=== PATIENT | female | born 1965 | race Caucasian/White ===

== ENCOUNTER → 2023-12-29 | Outpatient (CLI) | payer OTHER ==
[2023-12-29 09:22] LABS: Anion Gap 6 (5-15); Carbon Dioxide 27 mmol/L (20-30); Chloride 108 mmol/L (98-107); Potassium 3.7 mmol/L (3.5-5.1); Sodium 141 mmol/L (136-145)
[2023-12-29 09:24] LABS: Calcium 9.9 mg/dL (8.7-10.4)
[2023-12-29 09:28] LABS: Glucose 116 mg/dL (74-106); Triglycerides 112 mg/dL (< 150)
[2023-12-29 09:29] LABS: Blood Urea Nitrogen 12 mg/dL (9-23); LDL Cholesterol 108 mg/dL (< 100)
[2023-12-29 09:30] LABS: Cholesterol 169 mg/dL (< 200); HDL Cholesterol 42 mg/dL (40-59)
== END | disposition home or self-care (01) ==
LOC: LAB 08:22
PROVIDERS: ATTEND Internal Medicine
DX: I10 Essential (primary) hypertension (principal); E78.5 Hyperlipidemia, unspecified
CPT/HCPCS: 36415; 80048; 80061

== ENCOUNTER 2024-12-30 08:57 | Outpatient (CLI) | payer OTHER ==
[2024-12-30 10:33] LABS: Alanine Aminotransferase 16 U/L (7-40); Alkaline Phosphatase 81 U/L (46-116); Anion Gap 5 (5-15); Calcium 9.4 mg/dL (8.7-10.4); Carbon Dioxide 26 mmol/L (20-31)
[2024-12-30 10:34] LABS: BUN/Creatinine Ratio 9.7 (10.0-20.0); Triglycerides 99 mg/dL (< 150)
[2024-12-30 10:35] LABS: Total Protein 6.7 g/dL (5.7-8.2)
[2024-12-30 10:36] LABS: Albumin 4.5 g/dL (3.2-4.8); Bilirubin, Total 0.5 mg/dL (0.2-1.0); Cholesterol 150 mg/dL (< 200); HDL Cholesterol 45 mg/dL (40-59)
[2024-12-30 10:44] LABS: Blood Urea Nitrogen 9 mg/dL (9-23); Chloride 112 mmol/L (98-107); Glucose 108 mg/dL (74-106); Potassium 3.9 mmol/L (3.5-5.1); Sodium 143 mmol/L (136-145)
== END 2024-12-30 17:00 | disposition home or self-care (01) ==
LOC: LAB 08:57
PROVIDERS: ATTEND Internal Medicine
DX: I10 Essential (primary) hypertension (principal); E78.5 Hyperlipidemia, unspecified
CPT/HCPCS: 36415; 80053; 80061

== ENCOUNTER 2025-03-13 19:36 | Emergency (ER) | payer OTHER ==
[~2025-03-13] VITALS: Ht 162.6 cm; Wt 64.3 kg
[2025-03-13 20:29] LABS: Hematocrit 46.6 % (36.0-46.0); Hemoglobin 15.9 g/dL (12.2-16.2); Mean Corpuscular Hemoglobin 29.5 pg (28.0-32.0); Mean Corpuscular Volume 86.4 fL (80.0-100.0); Nucleated Red Blood Cells % 0.1 %
[2025-03-13 20:36] LABS: Chloride 104 mmol/L (98-107); Potassium 3.5 mmol/L (3.5-5.1); Sodium 138 mmol/L (136-145)
[2025-03-13 20:37] LABS: Anion Gap 8 (5-15); Carbon Dioxide 26 mmol/L (20-31)
[2025-03-13 20:38] LABS: Calcium 9.3 mg/dL (8.7-10.4)
[2025-03-13 20:42] LABS: BUN/Creatinine Ratio 12.0 (10.0-20.0); Blood Urea Nitrogen 9 mg/dL (9-23)
[2025-03-13 20:47] LABS: Acetaminophen < 2.0 UG/ML (10.0-20.0); Glucose 120 mg/dL (74-106); Salicylate < 3.0 mg/dL (-30)
[2025-03-13] MEDS: ACTIVATED CHARCOAL 50 GM/240 ML SOL PO ONE (20:50)
--- NOTE | 2025-03-13 20:51 | ED.PDOC ---
History of Present Illness HPI Comments 59 y/o F, with a Hx of schizophrenia, is BIBA from private residence for c/c of lightheadedness s/p drug overdose. Patient reports on attempting to end her life by taking 20-30x pills of her 5mg Haloperidol prescription medication, approximately, an hour ago. She endorses on having suicidal ideations but denies any homicidal ideations, auditory or visual hallucinations, chest pain, shortness of breath, or further acute symptoms. PHYSICAL EXAM: General: Awake, alert and oriented. No acute distress. Skin: Skin in warm, dry and intact without rashes or lesions. HEENT: The head is normocephalic and atraumatic. Conjunctivae are clear without exudates or hemorrhage. Sclera is non-icteric. Neck: Normal range of motion. No JVD. Cardiac: Regular rate Respiratory: No signs of respiratory distress. No Stridor. Extremities: Upper and lower extremities are atraumatic in appearance without deformity. Neurological: The patient is awake, alert and oriented to person, place, and time with normal speech. Speech is clear. There is no facial asymmetry. Psychiatric: Anxious mood REVIEW OF SYSTEMS: General: No fever, no chills, or fatigue HEENT: No sore throat, no earache, no congestion, no neck pain. Cardiac: No chest pain. No palpitations. Lungs: No shortness of breath, no cough. GI: No nausea, no vomiting, no diarrhea, no constipation, no abdominal pain : No dysuria, frequency, or urgency. No hematuria. Musculoskeletal: No joint pain , no joint swelling, no extremity edema. Skin: No rash, no itching. 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 Was a procedure done?: No EKG EKG : Comments QTC 424 Differential Dx Considerations may include: Differential diagnosis considered includes but not limited to suicidal, depression, hopelessness, anxiety, substance intoxication, psychiatric cause, other systemic illness, other X-Ray, Labs, Meds, VS Vital Signs Date Time Temp Pulse Resp B/P (MAP) Pulse Ox O2 Delivery O2 Flow Rate FiO2 03/14/25 10:00 80 20 92 03/14/25 08:23 89 03/14/25 08:00 98.3 83 15 155/80 (105) 94 98.3 03/14/25 07:46 Room Air* 0 21 03/14/25 06:34 92 18 162/88 (112) 99 03/14/25 05:21 72 18 149/86 (107) 99 03/14/25 02:37 68 18 122/71 (88) 99 03/14/25 00:00 62 16 120/73 (89) 93 03/13/25 22:38 74 14 110/70 (83) 96 03/13/25 21:27 80 14 98 Room Air* 0 21 03/13/25 20:30 98.7 80 16 131/87 (102) 96 98.7 03/13/25 20:12 90 03/13/25 19:46 98.2 88 16 166/86 96 98.2 Lab Test 03/14/25 02:29 03/13/25 19:57 Range/Units Urine Color Light-yellow Yellow Urine Clarity Clear Clear Urine pH 5.5 5.0-9.0 Urine Specific Register 1.011 1.001-1.035 Urine Protein Negative Negative Urine Ketones Negative Negative Urine Blood Negative Negative /uL Urine Nitrite Negative Negative Urine Bilirubin Negative Negative Urine Urobilinogen Normal Negative mg/dL Urine Leukocyte Esterase Negative Negative /uL Urine RBC 1 0 - 4 /hpf Urine Microscopic WBC 1 0-5 /HPF Urine Squamous Epithelial Cells None seen <5 /hpf Urine Bacteria None seen None Seen /hpf Urine Hyaline Casts Few 0 - 2 /lpf Urine Mucus Few None Seen Urine Glucose Normal Normal mg/dL Urine Opiates Screen Neg NEGATIVE Urine Fentanyl Screen Pos NEGATIVE Urine Barbiturates Screen Neg NEGATIVE Urine Phencyclidine Screen Neg NEGATIVE Urine Amphetamines Screen Neg NEGATIVE Urine Benzodiazepines Screen Neg NEGATIVE Urine Cocaine Screen Neg NEGATIVE Urine Cannabinoids Screen Neg NEGATIVE White Blood Count 8.5 4.4-10.8 10^3/uL Red Blood Count 5.39 H 4.0-5.20 10^6/uL Hemoglobin 15.9 12.2-16.2 g/dL Hematocrit 46.6 H 36.0-46.0 % Mean Corpuscular Volume 86.4 80.0-100.0 fL Mean Corpuscular Hemoglobin 29.5 28.0-32.0 pg Mean Corpuscular Hemoglobin Concent 34.2 32.0-36.0 g/dL Red Cell Distribution Width 13.0 11.8-14.3 % Platelet Count 267 140-450 10^3/uL Mean Platelet Volume 8.5 6.9-10.8 fL Neutrophils (%) (Auto) 49.0 37.0-80.0 % Lymphocytes (%) (Auto) 39.9 10.0-50.0 % Monocytes (%) (Auto) 5.2 0.0-12.0 % Eosinophils (%) (Auto) 5.0 0.0-7.0 % Basophils (%) (Auto) 0.9 0.0-2.0 % Neutrophils # (Auto) 4.2 1.6-8.6 10 ^3/uL Lymphocytes # (Auto) 3.4 0.4-5.4 10 ^3/uL Monocytes # (Auto) 0.4 0-1.3 10 ^3/uL Eosinophils # (Auto) 0.4 0-0.8 10 ^3/uL Basophils # (Auto) 0.1 0-0.2 10 ^3/uL Nucleated Red Blood Cells 0.1 % Sodium Level 138 136-145 mmol/L Potassium Level 3.5 3.5-5.1 mmol/L Chloride Level 104 98-107 mmol/L Carbon Dioxide Level 26 20-31 mmol/L Anion Gap 8 5-15 Blood Urea Nitrogen 9 9-23 mg/dL Creatinine 0.75 0.550-1.02 mg/dL Glomerular Filtration Rate Calc 91 >90 mL/min BUN/Creatinine Ratio 12.0 10.0-20.0 Serum Glucose 120 H 74-106 mg/dL Calcium Level 9.3 8.7-10.4 mg/dL Salicylates Level < 3.0 -30 mg/dL Acetaminophen Level < 2.0 L 10.0-20.0 UG/ML Plasma/Serum Blood Alcohol < 3.0 <10 mg/dL Time of 1ST Reevaluation: 05:45 Reevaluation 1ST: N/A Patient Education/Counseling: Treatment, Other (need for ED observation ) Family Education/Counseling: No Family Present Change of Shift?: Yes (Signed out to Dr. Ferrer at 0600) SEPSIS Sepsis Screen Date sepsis recognized/suspect: Mar 13, 2025 Time Sepsis recognized/suspect: 1941 Recent Procedure: No On Antibiotic Therapy: No Respiratory Rate >20: No Heart Rate >90: No Temp<36 C (96.8 F) or >38.3 C: No SBP <90 or MAP <65 mmHG: No New Acute Mental Status Change: No Is the patient on CPAP, BIPAP,: No Physician Orders Titrate Oxygen (03/13/25 19:49) Oxygen (03/13/25 ) Continous Pulse Oximetry (03/13/25 19:49) Saline Lock (03/13/25 19:49) Dray Truck Driver (03/13/25 ) * Psychiatric Consult (03/13/25 02:21) Sitter At Bedside (03/13/25 19:49) Soc Telemed Psych Consult (03/13/25 19:49) Electrocardigram (03/13/25 19:49) Electrocardigram (03/13/25 20:49) Electrocardigram (03/13/25 22:49) Consult Orders: ONCE (03/13/25 19:49) Vital Signs Date Time Temp Pulse Resp B/P (MAP) Pulse Ox O2 Delivery O2 Flow Rate FiO2 03/14/25 10:00 80 20 92 03/14/25 08:23 89 03/14/25 08:00 98.3 83 15 155/80 (105) 94 98.3 03/14/25 07:46 Room Air* 0 21 03/14/25 06:34 92 18 162/88 (112) 99 03/14/25 05:21 72 18 149/86 (107) 99 03/14/25 02:37 68 18 122/71 (88) 99 03/14/25 00:00 62 16 120/73 (89) 93 03/13/25 22:38 74 14 110/70 (83) 96 03/13/25 21:27 80 14 98 Room Air* 0 21 03/13/25 20:30 98.7 80 16 131/87 (102) 96 98.7 03/13/25 20:12 90 03/13/25 19:46 98.2 88 16 166/86 96 98.2 Laboratory Tests Test 03/13/25 19:57 White Blood Count 8.5 10^3/uL (4.4-10.8) Departure 1 Departure Time of Disposition: 06:00 Impression: Primary Impression: Antipsychotic overdose Additional Impression: Suicide attempt Disposition: 30 STILL A PATIENT Condition: Stable Comments MDM: 59 female with antipsychotic overdose. Poison control was consulted, recommended 6 hour observation. Patient medically cleared. Psychiatry was consulted, recommended transfer for inpatient psychiatric treatment. Signed out to Dr. Ferrer @ 0600 pending placement. Critical Care Note Critical Care Time?: No Stability Stability form required: No Heart Score Heart Score: Heart Score Response (Comments) Value History N/A 0 EKG N/A 0 Age N/A 0 Risk Factors N/A 0 Troponin N/A 0 Total 0 I personally scribed for SANDY RODRIGUEZ MD ([employer]) on 03/13/25 at 20:51. Electronically submitted by Azar Borrego ([email or web address]). I personally scribed for SANDY RODRIGUEZ MD ([employer]) on 03/13/25 at 23:22. Electronically submitted by Azar Borrego ([email or web address]). SANDY RODRIGUEZ MD Mar 13, 2025 20:51
[2025-03-13 21:27] VITALS: PULSE 80; RESP 14; O2SAT 98
[2025-03-13] MEDS: SODIUM CHLORIDE 0.9% 1,000 ML IV ONE ×2 (23:30→23:40)
--- NOTE | 2025-03-14 00:29 | ECG ---
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
[2025-03-14 03:11] LABS: Urine Protein, UAD Negative (Negative)
[2025-03-14 03:53] LABS: Amphetamine Screen, Urine Neg (NEGATIVE); Barbiturate Scree,Urine Neg (NEGATIVE); Benzodiazephine Screen, Urine Neg (NEGATIVE); Cannabinoid Screen, Urine Neg (NEGATIVE); Cocaine Screen, Urine Neg (NEGATIVE); Opiate Scree,Urine Neg (NEGATIVE); Phencyclidine Screen, Urine Neg (NEGATIVE)
--- NOTE | 2025-03-14 04:49 | DVHINCON2 ---
Date of Service if different f: Mar 14, 2025 Time of Service: 04:31 Consult Consult Note PSYCHIATRY ED NEW CONSULT HPI: 59 yo pt with PPH of schizophrenia and anxiety presents to ED BIBA for safety, psychiatric stabilization, and possible med initiation/optimization in setting of SA via intentional OD of ~30 tabs of Haloperidol 5 mg. Psychiatry consulted for safety evaluation and recommendations in context of current presentation Pt reports "my sister is never nice to me and i am tired of living like this, i don't want to be alive anymore so i took a bunch of my haldol to kill myself". Pt admits to intentional OD of ~30 tabs of Haloperidol 5 mg as suicide attempt although now expresses some regret of attempt In addition, over past several weeks experiencing worsening depressed mood, hopelessness/helplessness, negative thoughts, loss of interest, decreased energy, poor sleep, low self-worth, amotivation, etc. Identifies primary stress as chronic strained r/s with sibling whom she resides with and limited support system. Denies HI/AVH/paranoia/catatonic/perceptual disturbances Does not have active outpt MH services established at this time Currently rx'd haldol 5 mg po qd and benztropine 2 mg qd (rxd by PCP), overall med compliant with modest therapeutic effects ELIZABETH hx: Denies ETOH, THC or IDU SH: Single, no children, unemployed/ssi, lives with sister, limited support system noted. Unknown trauma hx FH: Denies FH of psych hospitalizations, suicide attempts, or completed suicides PMH: No acute medical/chronic pain issues, hx of seizures/TBI, HIV/hep C, c ardiac dz, or recent head injuries, NKDA Denies hx of SI/SIB/SA/PSG or prior psych hospitalizations/5150 holds. Denies history of violence, aggression, or assaultive behaviors. Denies any legal problems. Does not have access to firearms MSE: General Appearance/Behavior: Alert/awake; appears stated age, fair grooming/hygiene; calm/polite and cooperative, fair eye contact, no PMA/PMR Speech: coherent, some latency Thought Process: L/L/GD Thought Content: Abnormal Thoughts/Perceptions: denies dissociative symptoms Homicidality / Violent Thoughts: adamantly denies HI Suicidality: +SI Hallucinations: denies AVTH Delusions: denies paranoia, persecutory, or grandiose delusions Obsessions /compulsions: None Judgment/Insight: improving/fair Mood & Affect: "depressed" with mood-congruent, somewhat restricted/appropriate Orientation: oriented x 3 Attention/Concentration: appears intact Cognition: grossly intact Assessment: 59 yo pt with PPH of schizophrenia and anxiety presents to ED BIBA for safety, psychiatric stabilization, and possible med initiation/optimization in setting of SA via intentional OD of ~30 tabs of Haloperidol 5 mg Pt s/p significant SA and currently expressing some SI in setting of ongoing strained r/s with sibling and limited support system. Limited protective factors presently. Pt medically cleared in ED Acute safety risk remains slightly elevated and is appropriate for inpatient psychiatric admission for further safety, psychiatric stabilization, and possible medication initiation/optimization. Pt willing to transfer to inpt psych facility voluntarily. Consider 5150 hold for DTS ONLY if needed for transfer or if no voluntary beds are available Primary Diagnosis: Major Depressive disorder unspecified. Schizophrenia, hx Recommend VOL transfer to inpt psych facility for higher level of care 1:1 sitter is recommended Maintain suicide precautions Recommend HOLDING of current outpt med regimen in setting of OD (rx;d haldol 5 mg po qd and benztropine 2 mg qd) Defer any psychotropic med initiation/changes to accepting inpt psych facility If patient later refuses voluntary hospitalization/ requests to be discharged fr ED prior to transfer, please reconsult telepsych services to evaluate for 5150 hold. Pt verbalized understanding and is receptive to above tx plan This case was discussed with ED nurse/provider and all parties in agreement with above tx plan Vishal Lansgton MD Plan discussed with: Patient VISHAL LANGSTON MD Mar 14, 2025 04:49
[2025-03-14 08:00] VITALS: BP 155/80; TEMP 98.3
[2025-03-14 10:00] VITALS: PULSE 80; RESP 20; O2SAT 92
== END 2025-03-14 12:35 | disposition left against medical advice (07) ==
LOC: EDBD 19:36 → EDUNIT# 19:36 → ER 19:36
DX: T43.502A Poisoning by unspecified antipsychotics and neuroleptics, intentional self-harm, initial encounter (principal); T14.91XA Suicide attempt, initial encounter; F20.9 Schizophrenia, unspecified; Z79.899 Other long term (current) drug therapy; Y92.89 Other specified places as the place of occurrence of the external cause
CPT/HCPCS: 36415; 80048; 80307; 80320; 80329; 81001; 85025; 93005; 96360; 96361; 99285; J7030